=== PATIENT | female | born 1955 | race Caucasian/White ===

== ENCOUNTER 2020-10-09 09:55 | Emergency (ER) | payer OTHER | END 2020-10-09 10:43 | disposition home or self-care (01) | LOC: JVIRT 09:55 | DX: Z03.818 Encounter for observation for suspected exposure to other biological agents ruled out (principal) | CPT/HCPCS: C9803; Q3014-GT; U0003 ==

== ENCOUNTER 2020-11-22 12:17 | Emergency (ER) | payer OTHER ==
[2020-11-22 12:22] VITALS: BP 115/76; PULSE 114; TEMP 98.5; BMI 21.6
== END 2020-11-22 12:36 | disposition home or self-care (01) ==
LOC: JERFT 12:17
DX: Z11.59 Encounter for screening for other viral diseases (principal)
CPT/HCPCS: 99284-25; C9803; U0003